=== PATIENT | female | born 1980 | race Caucasian/White ===

== ENCOUNTER 2016-09-20 14:07 | Emergency (ER) | payer OTHER ==
[2016-09-20 14:16] VITALS: BP 104/67; TEMP 98; BMI 26.3
[2016-09-20 14:52] LABS: BASOPHILS % (AUTO) 0.4 % (0.0-3.0); EOSINOPHILS # (AUTO) 0.7 K/ul (0.0-0.7); EOSINOPHILS % (AUTO) 6.6 % (0.0-7.0); HEMATOCRIT 33.7 % (37.0-47.0); HEMOGLOBIN 12.3 g/dl (12.0-16.0); IMMATURE GRANULOCYTE % (AUTO) 0.3 % (0.0-5.0); LYMPHOCYTES # (AUTO) 3.2 K/uL (0.60-3.4); LYMPHOCYTES % (AUTO) 32.5 (10.0-50.0); MEAN CORPUSCULAR HEMOGLOBIN 32.4 pg (27.0-31.0); MEAN CORPUSCULAR HGB CONC 36.5 (31.8-35.4); MEAN CORPUSCULAR VOLUME 88.7 fl (81.0-99.0); MONOCYTES # (AUTO) 0.8 K/uL (0.4-2.0); MONOCYTES % (AUTO) 7.7 (0-10); NEUTROPHILS # (AUTO) 5.2 K/ul (2.0-6.9); NEUTROPHILS % (AUTO) 52.5; PLATELET COUNT 251 10^3/uL (140-440); WHITE BLOOD COUNT 9.87 K/ul (4.6-10.2)
[2016-09-20 15:04] LABS: SERUM PREGNANCY INTERNAL QC INTERNAL QC VALID
--- NOTE | 2016-09-20 15:05 | DI ---
EXAM: Three views of the left wrist HISTORY: Wrist pain with no injury. COMPARISON: Left hand x-ray 04/18/2011 FINDINGS: There is no cortical irregularity or displaced fracture. Radiocarpal joint is unremarkabl e. Carpal bones are unremarkable. There is no lytic or blastic lesion. The soft tissues are unrem arkable. IMPRESSION: No acute abnormality or displaced fracture of the left wrist.
[2016-09-20 15:13] LABS: ALBUMIN/GLOBULIN RATIO 1.25; ANION GAP 14.1; BILIRUBIN,TOTAL 0.37 mg/dL (0.00-1.20); BUN/CREATININE RATIO 10.93; CALCIUM 9.3 mg/dL (8.2-10.2); CREATININE 1.92 mg/dL (0.60-1.30); POTASSIUM 3.1 mmol/L (3.5-5.10); TOTAL PROTEIN 7.2 g/dL (6.4-8.2)
[2016-09-20 16:30] LABS: BILIRUBIN,URINE 1+ (NEGATIVE); KETONES,URINE Trace (NEGATIVE); LEUKOCYTE ESTERASE ,URINE Negative (NEGATIVE); NITRITE,URINE Negative (NEGATIVE); PH,URINE 5.5 (5-9); PROTEIN,URINE 1+ (NEGATIVE); URINE, BLOOD Trace-intact (NEGATIVE)
[2016-09-20 16:33] LABS: ADD URINE MICROSCOPIC YES
[2016-09-20 16:34] LABS: BACTERIA,URINE TRACE (NOT PRESENT)
[2016-09-20 16:40] LABS: COCAIN SCREEN,URINE NEGATIVE (NEGATIVE)
[2016-09-20] MEDS ORDERED: SODIUM CHLORIDE 1,000 ML IV STA (16:53)
[2016-09-20] MEDS ORDERED: K-DUR PO STA (17:17)
--- NOTE | 2016-09-20 17:21 | CT ---
EXAM: CT Head HISTORY: Change in mental status, numbness COMPARISON: 11/13/2010 TECHNIQUE: CT head performed without contrast FINDINGS: There is no mass effect, midline shift, or intracranial hemmorhage. Lugo white different iation is preserved. There is no extra-axial collection. The ventricles, sulci, and basal cisterns are patent and symmetric. There is no depressed calvarial fracture. The mastoid air cells are mark anthony ar. Mild mucosal thickening ethmoid air cells. Leftward projecting nasal septal spur IMPRESSION: 1. No acute intracranial abnormality. 2. Mild ethmoid sinusitis.
[2016-09-20 17:30] LABS: ERYTHROCYTE SEDIMENTATION RATE 26 mm/hr (0-20); ESR INTERNAL QC INTERNAL QC VALID
[2016-09-20 17:46] LABS: CREATINE KINASE MB 8.3 ng/ml (0.0-3.6)
--- NOTE | 2016-09-20 18:36 | ED.PDOC ---
General ED Provider: Dr. JUDSON DUPREE-ER Chief Complaint: Wrist Pain/Injury Stated Complaint: i slept on my wrist all night --i cant move--patient appears sedated, slurring words, falling asleep easily during conversation Time Seen by Physician: 14:10 Mode of Arrival: Walk-In Information Source: Patient, Family Exam Limitations: No limitations, Altered mental status Primary Care Provider: JUANA COX Nursing and Triage Documentation Reviewed and Agree: Yes Musculoskeletal Complaint Exam - Hand/Wrist Complaint/Exam Location of Pain: Reports: Left, Wrist Mechanism of Injury: Reports: Other ("i slept on it all night") Onset/Duration: hours Symptoms Are: Still present Onset of Pain: Reports: Immediate Initial Severity: Mild Current Severity: Mild Location: Reports: Discrete (left wrist) Character: Reports: Dull, Aching, Stiffness Alleviating: Reports: Elevation Aggravating: Reports: Movement Associated Signs and Symptoms: Denies: Swelling, Redness, Bruising, Fever, Weakness, Numbness, Tingling (no evidence of compartment syndrome--good pulses - -color is good--sensation is intact) Related Surgical History: Reports: None Tenderness: Present: Radius, Ulna Compartment Syndrome Risk Factors: Present: Pain. Absent: Paralysis, Pallor, Pulselessness, Paresthesias Differential Diagnoses: Carpal Tunnel Syndrome, Contusion Review of Systems - Review Of Systems Constitutional: Reports: No symptoms Eyes: Reports: No symptoms Ears, Nose, Mouth, Throat: Reports: No symptoms Respiratory: Reports: No symptoms Cardiac: Reports: No symptoms GI: Reports: No symptoms : Reports: No symptoms Musculoskeletal: Reports: Joint pain (wrist pain). Denies: Back pain, Gout Skin: Reports: No symptoms Neurological: Reports: No symptoms Endocrine: Reports: No symptoms Hematologic/Lymphatic: Reports: No symptoms All Other Systems: Reviewed and Negative Past Medical History - Past Medical History Previously Healthy: Yes Endocrine: Reports: None Cardiovascular: Reports: Hypertension Respiratory: Reports: None Hematological: Reports: None Gastrointestinal: Reports: None Genitourinary: Reports: None Neuro/Psych: Reports: None Musculoskeletal: Reports: None Cancer: Reports: None Last Menstrual Period: now - Surgical History General Surgical History: Reports: Unknown - Family History Family History: Reports: Unknown - Social History Smoking Status: Current every day smoker Hx Substance Use: No Alcohol Screening: Occasionally Lives: With family Physical Exam - Physical Exam Appearance: Well-appearing, No pain distress, Well-nourished Pain Distress: Mild Eyes: SONY, EOMI, Conjunctiva clear ENT: Ears normal, Nose normal, Oropharynx normal Neck: Supple Respiratory: Airway patent, Breath sounds clear, Breath sounds equal, Respirations nonlabored Cardiovascular: RRR, Pulses normal, No rub, No murmur GI/: Soft, Nontender, No masses, Bowel sounds normal, No Organomegaly Musculoskeletal: Normal strength, ROM intact, No edema, No calf tenderness Skin: Warm, Dry, Normal color Neurological: Sensation intact, Motor intact, Reflexes intact, Cranial nerves intact, Alert, Oriented Psychiatric: Affect appropriate, Mood appropriate Re-Evaluation - Re-Evaluation Time of Re-Evaluation: 18:39 Status: Improved (moving extremities) Vital Signs Stable: Yes Pain Level: 1 Appearance: NAD Lungs: Clear Skin: Warm and Dry Neuro: Alert and Oriented X3 CV: RRR Critical Care Note - Critical Care Note Total Time (mins): 0 Course - Course Hematology/Chemistry: 09/20/16 14:45 09/20/16 14:45 Orders, Labs, Meds: Lab Review 09/20/16 09/20/16 14:45 16:14 WBC 9.87 RBC 3.80 L Hgb 12.3 Hct 33.7 L MCV 88.7 MCH 32.4 H MCHC 36.5 H RDW Coeff of Shayy 11.5 L Plt Count 251 Immature Gran % (Auto) 0.3 Neut % (Auto) 52.5 Lymph % (Auto) 32.5 Kane % (Auto) 7.7 Eos % (Auto) 6.6 Baso % (Auto) 0.4 Immature Gran # (Auto) 0.0 Neut # 5.2 Lymph # 3.2 Kane # 0.8 Eos # 0.7 Baso # 0.0 ESR 26 H Sodium 140 Potassium 3.1 L Chloride 102 Carbon Dioxide 27 Anion Gap 14.1 BUN 21 H Creatinine 1.92 H Estimated GFR (MDRD) 30.00 BUN/Creatinine Ratio 10.93 Glucose 118 H Calcium 9.3 Total Bilirubin 0.37 AST 33 ALT 18 Alkaline Phosphatase 52 Total Creatine Kinase 803 CK-MB (CK-2) 8.3 H* CK-MB (CK-2) % 1.25321 Total Protein 7.2 Albumin 4.0 Globulin 3.2 Albumin/Globulin Ratio 1.25 Serum , Qual Negative Urine Color Dark Urine Clarity Clear Urine pH 5.5 Ur Specific [place] 1.025 Urine Protein 1+ Urine Glucose (UA) Negative Urine Ketones Trace Urine Blood Trace-intact Urine Nitrite Negative Urine Bilirubin 1+ Urine Urobilinogen 0.2 Ur Leukocyte Esterase Negative Urine Microscopic RBC 5-10 Urine Microscopic WBC 2-5 Ur Squamous Epith Cells 0-2 Ur Renal Epithelial Cell 0-2 Amorphous Sediment 1+ Urine Bacteria Trace Hyaline Casts 0-2 Urine Mucus 1+ Urine Opiates Screen Positive Ur Oxycodone Screen Negative Urine Methadone Screen Negative Ur Propoxyphene Screen Negative Ur Barbiturates Screen Negative U Tricyclic Antidepress Negative Ur Phencyclidine Scrn Negative Ur Amphetamine Screen Negative U Methamphetamines Scrn Negative U Benzodiazepines Scrn Positive Urine Cocaine Screen Negative U Cannabinoids Screen Negative Orders Category Date Time Status EKG-(ED ONLY) Stat CARDIO 09/20/16 14:22 Completed IV [ED IV/MEDIPORT/POWERPORT] .ONCE EMERGENCY 09/20/16 16:53 Active Splint [ED SPLINT APPLICATION] .ONCE EMERGENCY 09/20/16 16:49 Active CBC W/ AUTO DIFF Stat LAB 09/20/16 14:45 Completed COMPREHENSIVE METABOLIC PANEL Stat LAB 09/20/16 14:45 Completed CREATINE KINASE Stat LAB 09/20/16 14:45 Completed ESR Stat LAB 09/20/16 14:45 Completed SERUM Stat LAB 09/20/16 14:45 Completed URINALYSIS C & S IF INDICATED Stat LAB 09/20/16 16:14 Completed URINE DRUG SCREEN (RAPID FOR ED) [DRUG SCREEN, URINE, LAB 09/20/16 16:14 Completed RAPID] Stat 0.9 % Sodium Chloride [Saline Flush] MEDS 09/20/16 16:53 Discontinued 1 syr IVF PRN PRN Potassium Chloride [K-Dur] MEDS 09/20/16 17:17 Discontinued 40 meq PO ONCE STA Sodium Chloride 0.9% [Sodium Chloride] 1,000 ml MEDS 09/20/16 16:[address] HEAD W/O CONTRAST Stat RADS 09/20/16 16:51 Completed WRIST, LEFT 3 VIEWS Stat RADS 09/20/16 14:24 Completed Medications Discontinued Medications Generic Name Dose Route Start Last Admin Trade Name Freq PRN Reason Stop Dose Admin Sodium Chloride 1,000 mls @ 1,000 mls/hr 09/20/16 16:53 09/20/16 17:13 Sodium Chloride IV 09/20/16 17:52 1,000 mls/hr BOLUS STA Administration Potassium Chloride 40 meq 09/20/16 17:17 09/20/16 18:25 K-Dur PO 09/20/16 17:18 40 meq ONCE STA Administration Sodium Chloride 1 syr 09/20/16 16:53 Saline Flush IVF PRN PRN To flush IV i suspect the patient is under influence of medication but refuses to be admitted--even with family here she cannot be persuaded to stay Vital Signs: Temp Pulse Resp BP Pulse Ox 09/20/16 14:07 98.0 F 99 H 16 104/67 96 Departure - Departure Time of Disposition: 18:40 Disposition: HOME SELF-CARE Discharge Problem: Dehydration Mental status alteration Qualifiers: Altered mental status type: stupor Qualifier Code: (R40.1) Stupor Instructions: Dehydration (ED) Condition: Good Pt referred to PMD for follow-up: Yes Additional Instructions: --f/u with dr cox tomorrow since u do not want to be admitted--you will need to have your kidney function, electrolytes and wrist rechecked Allergies/Adverse Reactions: Allergies ibuprofen Allergy (Mild, Verified 09/20/16 14:19) restless arms at night Home Medications: Ambulatory Orders Labetalol HCl [Trandate] 100 mg PO BID 08/29/15 Losartan Potassium [Cozaar] 100 mg PO DAILY 11/04/15 Escitalopram Oxalate [Lexapro] 10 mg PO DAILY #30 02/17/16 Norgestimate-Ethinyl Estradiol [Sprintec 28 Day Tablet] 1 each PO DAILY Triamterene/Hydrochlorothiazid [Dyazide] 1 cap PO DAILY 02/18/16 Disposition Discussed With: Patient, Family
== END 2016-09-20 18:50 | disposition home or self-care (01) ==
LOC: ED 14:07
DX: E86.0 Dehydration (principal); R40.1 Stupor; M25.532 Pain in left wrist; F17.210 Nicotine dependence, cigarettes, uncomplicated; Z79.899 Other long term (current) drug therapy
CPT/HCPCS: 36415; 80053; 80306; 81001; 82550; 82553; 84703; 85025; 85651; 93005; 93010; 96360; 96361; 99284